=== PATIENT | male | born 1945 | race Caucasian/White ===

== ENCOUNTER → 2018-04-04 14:39 | Outpatient (CLI) | payer MEDICARE, BC ==
[~2018-04-04 14:39] MED LIST: BETAPACE 120 M120 MG PO; CO Q-10400 MG PO; ELIQUIS5 MG PO; KRILL OIL 1,001 EAC1 PO; MAG-OX 400 MG400 MG PO; ZANTAC300 MG PO
[2018-04-15 10:18] VITALS: BMI 30.1
== END | disposition home or self-care (01) ==
LOC: D.LAB 14:39
DX: N20.0 Calculus of kidney (principal); Z12.5 Encounter for screening for malignant neoplasm of prostate

== ENCOUNTER 2018-04-15 08:28 | Day surgery (SDC) | payer MEDICARE, BC ==
[~2018-04-15] VITALS: Ht 172.7 cm; Wt 89.8 kg
[~2018-04-15 08:28] MED LIST changes: -CO Q-10400 MG PO; -KRILL OIL 1,001 EAC1 PO; -MAG-OX 400 MG400 MG PO; -ZANTAC300 MG PO
[2018-04-15 09:05] LABS: HEMATOCRIT 48.4 % (42.0-54.0); HEMOGLOBIN 16.5 g/dL (13.5-17.5); MCH 32.2 pg (26.0-34.0); MCHC 34.1 g/dL (31.0-37.0); MCV 94.3 fL (80.0-100.0); MEAN PLATELET VOLUME 9.5 fL (7.4-10.4); RBC 5.13 10x6/uL (4.20-6.10); RDW 12.7 % (11.5-14.5); WBC 5.5 10x3/uL (4.8-10.8)
[2018-04-15] MEDS ORDERED: CO Q-10400 MG PO (10:07)
[2018-04-15] MEDS ORDERED: KRILL OIL 1,001 EAC1 PO (10:07)
[2018-04-15] MEDS ORDERED: MAG-OX 400 MG400 MG PO (10:07)
[2018-04-15] MEDS ORDERED: ZANTAC300 MG PO (10:08)
[2018-04-15 10:18] VITALS: BP 111/61; Ht 172.7 cm; Wt 89.8 kg
--- NOTE | 2018-04-15 13:52 | OP ---
PATIENT NAME: DONATO MOTLEY MEDICAL RECORD: [id number] :49 LOCATION:[facility] ADMISSION DATE: SURGEON: SHELTON DACOSTA MD DATE OF OPERATION: 04/15/2018 SURGEON: Shelton Dacosta MD ANESTHESIA: TIVA by Christian Tijerina CRNA DIAGNOSES: Obstructive BPH, microscopic hematuria. PROCEDURES: Cystoscopy and UroLift times 5 units attempted, 4 held. FINDINGS: Obstructive bilateral lateral lobes. Single ureteral orifice bilaterally. No bladder tumors. SPECIMENS: None. BLOOD LOSS: None. CLINICAL HISTORY: This is a 73-year-old male who was initially referred for issues with renal stones, gross hematuria, and obstructive voiding symptoms. He had been seeing Dr. Taylor for these issues, but he felt that Dr. Taylor was not paying enough attention to his problems. He had cystoscopy by Dr. Taylor on 02/26/2018. Dr. Taylor told him that the prostate was large and obstructive, and the patient had episodes of gross hematuria after that procedure was done. For hematuria workup, a CT scan was performed at [facility]. I have asked to obtain a CD of the images for me to review. He was started on finasteride in February of 2018. He has been on tamsulosin for 4 years. He still gets episodes of lightheadedness and low ejaculatory volume from the tamsulosin. Also, he has been suffering from a cataract. 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 He has atrial fibrillation and he is on Eliquis. His brazer assembler gave the okay to hold the Eliquis perioperatively. His IPSS score is 28 and his quality of life score is 6. His PSA is 1.44 and that was on 04/04/2018. On ASAD, he has a 40-gram prostate. A KUB showed a 17-mm left renal pelvis stone. 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 We will have to get an outpatient chest CT to further define this. HE IS ALLERGIC TO POISON EMPERATRIZ. He is not allergic to any medications. He was given Ancef on-call to the OR. DESCRIPTION OF PROCEDURE: The patient was given IV sedation. He was then placed in the dorsal lithotomy position and prepped and draped. We used the UroLift scope. No penile or urethral strictures were seen. The prostatic urethra was obstructive in the lateral lobes. The bladder neck was not obstructive. Going into the bladder, the entire bladder was seen and no bladder tumors were seen. He has single ureteral orifice on each side. The bladder was mildly trabeculated. We placed the bladder neck UroLift implants first. These were placed about 1.5 cm distal to the bladder neck. They were placed in the anterolateral urethra. On the left side, the implant went in without any problems. On the right side, the implant lost its urethral clip. We had to remove the clip and try again on the right side. The second time, it did hold. We then placed one implant on each side, at the level of the verumontanum and the anterolateral urethra. These also held without any issues. He had a nice wide open channel at the end of the procedure. OPERATIVE REPORT [id number] DONATO MOTLEY I will send him home today and arrange for outpatient CT scan of abdomen and pelvis without and with IV contrast. I will see him in follow up in 3 weeks' time to review the CT scan results with him as well as to check on his voiding symptoms. TRANSINT:[id number] Voice Confirmation ID: [id number] DOCUMENT ID: [id number] SHELTON DACOSTA MD at 1352 CC: [id number] DICTATION DATE: 04/15/18 1310 MILKING SYSTEM INSTALLER: 04/15/18 1341 REG [facility] [address] [id number]
--- NOTE | 2018-04-15 15:06 | NUR ---
1445 PT HAS VOIDED, BLOODY URINE. IV DC'D WITH CATH INTACT DC INSTS REVIEWED VOICED UNDERSTANDING RELEASED IN WC WITH ESCORT.
== END 2018-04-15 14:45 | disposition home or self-care (01) ==
LOC: D.OPS 08:28 → D.PAN 11:10 → D.OPS 11:45
PROVIDERS: Anesthesiology
DX: N40.1 Benign prostatic hyperplasia with lower urinary tract symptoms (principal); N13.8 Other obstructive and reflux uropathy; R31.29 Other microscopic hematuria

== ENCOUNTER → 2018-04-21 13:03 | Outpatient (CLI) | payer MEDICARE, BC ==
[2018-04-15 10:18] VITALS: BMI 30.1
[~2018-04-21 13:03] MED LIST changes: +CO Q-10400 MG PO; +KRILL OIL 1,001 EAC1 PO; +MAG-OX 400 MG400 MG PO; +ZANTAC300 MG PO
== END | disposition home or self-care (01) ==
LOC: D.CT 13:03
DX: E07.89 Other specified disorders of thyroid (principal)

== ENCOUNTER → 2018-05-07 19:29 | Outpatient (CLI) | payer MEDICARE, BC ==
[2018-04-15 10:18] VITALS: BMI 30.1
== END | disposition home or self-care (01) ==
LOC: D.LABREF 19:29
PROVIDERS: ATTEND Urology
DX: D72.829 Elevated white blood cell count, unspecified (principal); R31.9 Hematuria, unspecified

== ENCOUNTER → 2018-09-02 13:33 | Outpatient (CLI) | payer MEDICARE, BC ==
[2018-04-15 10:18] VITALS: BMI 30.1
== END | disposition home or self-care (01) ==
LOC: D.LABREF 13:33
PROVIDERS: ATTEND Urology
DX: R31.0 Gross hematuria (principal)

== ENCOUNTER → 2018-10-21 13:27 | Outpatient (CLI) | payer MEDICARE, BC ==
[2018-04-15 10:18] VITALS: BMI 30.1
[~2018-10-21 13:27] MED LIST changes: +HYDROCODON-ACE1 EA10 PO
== END | disposition home or self-care (01) ==
LOC: D.RAD 13:27
PROVIDERS: ATTEND Urology
DX: N20.0 Calculus of kidney (principal)

== ENCOUNTER 2018-10-21 21:25 | Emergency (ER) | payer MEDICARE, BC ==
[~2018-10-21] VITALS: Ht 172.7 cm; Wt 86.4 kg
[~2018-10-21 21:25] MED LIST changes: -HYDROCODON-ACE1 EA10 PO
[2018-10-21 21:47] VITALS: Ht 172.7 cm; Wt 86.4 kg
[2018-10-21 22:23] LABS: BASOPHILS 0.3 % (0-2); EOSINOPHILS 2.4 % (0-7); HEMATOCRIT 43.9 % (42.0-54.0); HEMOGLOBIN 15.4 g/dL (13.5-17.5); IMMATURE GRANULOCYTES 0.3 % (0-5); LYMPHOCYTES 23.3 % (15-50); MCH 32.1 pg (26.0-34.0); MCHC 35.1 g/dL (31.0-37.0); MCV 91.5 fL (80.0-100.0); MEAN PLATELET VOLUME 9.7 fL (7.4-10.4); MONOCYTES 9.3 % (2-11); NEUTROPHILS 64.4 % (40-80); PLATELET COUNT 146 10x3/uL (130-400); RDW 12.9 % (11.5-14.5); WBC 6.7 10x3/uL (4.8-10.8)
[2018-10-21 22:27] LABS: APPEARANCE CLEAR (CLEAR); BILIRUBIN NEGATIVE (NEGATIVE); COLOR YELLOW (YELLOW); GLUCOSE NEGATIVE (NEGATIVE); KETONE NEGATIVE (NEGATIVE); NITRITE NEGATIVE (NEGATIVE); PROTEIN NEGATIVE (NEGATIVE); SPECIFIC GRAVITY 1.015 (1.005-1.020); UROBILINOGEN NORMAL (NORMAL)
[2018-10-21 22:28] LABS: WHITE CELLS - URINE OCC /hpf (0-5)
[2018-10-21 22:29] LABS: ALBUMIN 3.5 g/dL (3.4-5.0); ALKALINE PHOSPHATASE 71 U/L (46-116); ALT (SGPT) 24 U/L (10-68); BILIRUBIN - TOTAL 0.96 mg/dL (0.2-1.3); CALC OSMOLALITY 288 mosm/kg (275-300); CALCIUM 8.7 mg/dL (8.5-10.1); CARBON DIOXIDE 25.5 mmol/L (21.0-32.0); CHLORIDE - SERUM 107 mmol/L (98-107); CREATININE - SERUM 1.6 mg/dL (0.6-1.3); GLUCOSE 127 mg/dL (74-106); POTASSIUM - SERUM 4.6 mmol/L (3.5-5.1); PROTEIN - SERUM 7.1 g/dL (6.4-8.2); SODIUM 141 mmol/L (136-145); UREA NITROGEN 30 mg/dL (7-18); eGFR NON AFRICAN AMERICAN 45 mL/min (90-120)
[2018-10-21 22:32] LABS: AMYLASE - SERUM 50 U/L (25-115); LIPASE 137 U/L (73-393); TROPONIN-I < 0.017 ng/mL (0.000-0.060)
[2018-10-21] MEDS ORDERED: HYDROCODON-ACE1 EA10 PO (23:56)
[2018-10-22 00:41] VITALS: BP 133/71
== END 2018-10-22 00:41 | disposition home or self-care (01) ==
LOC: D.ER 21:25
PROVIDERS: Family Medicine
DX: N20.1 Calculus of ureter (principal); N28.9 Disorder of kidney and ureter, unspecified